=== PATIENT | male | born 1975 | race Caucasian/White ===

== ENCOUNTER 2020-01-27 18:52 | Emergency (ER) | payer MEDICAID ==
[~2020-01-27] VITALS: Ht 167.6 cm; Wt 113.4 kg
[2020-01-27 19:03] VITALS: Ht 167.6 cm; Wt 113.4 kg
[2020-01-27 19:53] VITALS: BP 165/89
== END 2020-01-27 19:53 | disposition left against medical advice (07) ==
LOC: ED 18:52 → EDBD 18:52 → ED 19:53
DX: M79.89 Other specified soft tissue disorders (principal); Z13.9 Encounter for screening, unspecified

== ENCOUNTER 2020-02-06 13:41 | Inpatient (IN) | payer MEDICAID, SELFPAY ==
[~2020-02-06] VITALS: Ht 167.6 cm; Wt 113.4 kg
[2020-02-06 13:49] VITALS: Ht 167.6 cm; Wt 113.4 kg
[2020-02-06 14:43] LABS: BILIRUBIN TOTAL 7.8 mg/dL (0.20-1.00); CARBON DIOXIDE 20.7 mmol/L (21-32); POTASSIUM SERUM 3.7 mmol/L (3.5-5.1)
[2020-02-06 14:44] LABS: PLATELET COUNT 167 x10^3mcL (130-400)
[2020-02-06 14:45] LABS: RED CELL DISTRIBUTION WIDTH 18.1 % (11.5-14.5)
[2020-02-06 14:46] LABS: ALBUMIN 1.2 g/dL (3.4-5.0)
[2020-02-06 14:47] LABS: CALCIUM 5.7 mg/dL (8.5-10.1); CREATININE SERUM 5.8 mg/dL (0.7-1.3)
[2020-02-06 15:52] LABS: BAND NEUTROPHIL 0 % (0-10); BASOPHIL 0 % (0-2); MONOCYTE 1 % (0-7); SEGMENTED NEUTROPHILS 96 % (37-75); rbc morphology (normal/abnorm) ABNORMAL (NORMAL)
[2020-02-06] MEDS ORDERED: LASIX40 MG PO (15:54)
[2020-02-06] MEDS ORDERED: KRISTALOSE20 GM PO (15:55)
[2020-02-06] MEDS ORDERED: METHADONE HC10 MG/M3 PO (15:56)
[2020-02-06] MEDS ORDERED: ZOF4 PO (15:57)
[2020-02-06] MEDS ORDERED: ATIVAN0.5 M1 PO (15:58)
[2020-02-06] MEDS ORDERED: ROXD PO (15:58)
[2020-02-06] MEDS ORDERED: DUL10S RC (16:00)
[2020-02-06] MEDS ORDERED: LEVSIN0.125 M1 PO (16:00)
[2020-02-06 17:20] LABS: T3 TOTAL 0.26 ng/mL
[2020-02-06 17:37] LABS: FREE T4 0.61 ng/dL (0.76-1.46)
[2020-02-06 17:46] LABS: FREE THYROXINE INDEX 1.1 ug/dL (1.4-4.5); T4(THYROXINE) 3.6 ug/dL (4.7-13.3)
[2020-02-06 18:09] LABS: CHOLESTEROL/HDL RATIO 14.3
[2020-02-06 19:22] VITALS: BP 103/62
[2020-02-06 19:30] LABS: PHOSPHOROUS 10.8 mg/dL (2.5-4.9)
[2020-02-06 21:10] VITALS: BP 108/65
[2020-02-06 22:35] VITALS: BP 112/61
[2020-02-06 23:50] VITALS: BP 101/61
[2020-02-07] LABS: RED BLOOD CELLS 2.48 M/mm3 (4.52-5.90)
[2020-02-07 00:12] LABS: IRON 31 ug/dL (65-170); TOTAL IRON BINDING CAPACITY 211 ug/dL (250-450)
[2020-02-07 01:00] VITALS: BP 110/62
[2020-02-07 05:11] VITALS: BP 116/63
[2020-02-07 07:43] LABS: PLATELET COUNT 250 x10^3mcL (130-400)
[2020-02-07 08:05] LABS: RED CELL DISTRIBUTION WIDTH 14.6 % (11.5-14.5)
[2020-02-07 10:02] VITALS: BP 94/44
[2020-02-07 10:22] LABS: CALCIUM 7.4 mg/dL (8.5-10.1); MAGNESIUM 2.5 mg/dL (1.8-2.4); PHOSPHOROUS 6.5 mg/dL (2.5-4.9)
[2020-02-07 10:35] LABS: CREATININE SERUM 4.8 mg/dL (0.7-1.3)
[2020-02-07 13:30] VITALS: BP 133/72
[2020-02-07 14:15] LABS: MONOCYTE 6 % (0-7); SEGMENTED NEUTROPHILS 88 % (37-75); rbc morphology (normal/abnorm) ABNORMAL (NORMAL)
[2020-02-07 15:17] LABS: PATH REVIEW for HEMA NO
[2020-02-07 17:15] VITALS: BP 121/63
[2020-02-07 20:21] VITALS: BP 120/63
[2020-02-08 06:12] VITALS: BP 128/71
[2020-02-08 09:20] VITALS: BP 112/58
[2020-02-08 12:40] VITALS: BP 122/65
[2020-02-08 16:55] VITALS: BP 116/69
[2020-02-08 22:00] VITALS: BP 113/69
[2020-02-09 05:48] VITALS: BP 92/68
[2020-02-09 06:58] LABS: BASOPHIL % 0.5 % (0-2); PLATELET COUNT 185 x10^3mcL (130-400)
[2020-02-09 08:01] LABS: CARBON DIOXIDE 13.7 mmol/L (21-32); POTASSIUM SERUM 4.4 mmol/L (3.5-5.1)
[2020-02-09 08:11] LABS: CREATININE SERUM 9.1 mg/dL (0.7-1.3)
[2020-02-09 08:46] LABS: CALCIUM 5.1 mg/dL (8.5-10.1)
[2020-02-09 09:06] VITALS: BP 119/73
[2020-02-09 09:42] LABS: RED CELL DISTRIBUTION WIDTH 18.3 % (11.5-14.5)
[2020-02-09 12:52] LABS: rbc morphology (normal/abnorm) ABNORMAL (NORMAL)
[2020-02-09 13:23] VITALS: BP 107/48
[2020-02-09 21:00] VITALS: BP 116/63
[2020-02-10 05:25] VITALS: BP 99/54
[2020-02-10 07:12] LABS: PLATELET COUNT 243 x10^3mcL (130-400)
[2020-02-10 07:17] LABS: CARBON DIOXIDE 12.6 mmol/L (21-32); POTASSIUM SERUM 4.6 mmol/L (3.5-5.1)
[2020-02-10 07:19] LABS: CREATININE SERUM 9.8 mg/dL (0.7-1.3)
[2020-02-10 07:57] LABS: RED CELL DISTRIBUTION WIDTH 18.2 % (11.5-14.5)
[2020-02-10 12:44] LABS: BAND NEUTROPHIL 1 % (0-10); MONOCYTE 6 % (0-7); SEGMENTED NEUTROPHILS 81 % (37-75); rbc morphology (normal/abnorm) ABNORMAL (NORMAL); tear drop cell (dacryocyte) 1+
[2020-02-10 12:45] LABS: PLATELET MORPHOLOGY PLATELETS NORMAL
[2020-02-10 13:20] VITALS: BP 108/66
[2020-02-10 17:32] VITALS: BP 108/66
[2020-02-10 21:24] VITALS: BP 111/68
[2020-02-11 06:31] VITALS: BP 94/44
[2020-02-11 06:41] VITALS: BP 105/62
[2020-02-11 09:00] LABS: BASOPHIL % 0.6 % (0-2); PLATELET COUNT 214 x10^3mcL (130-400)
[2020-02-11 09:07] VITALS: BP 94/54
[2020-02-11 09:07] LABS: RED CELL DISTRIBUTION WIDTH 18.2 % (11.5-14.5)
[2020-02-11 09:17] LABS: CARBON DIOXIDE 13.7 mmol/L (21-32); MAGNESIUM 2.2 mg/dL (1.8-2.4); POTASSIUM SERUM 4.9 mmol/L (3.5-5.1)
[2020-02-11 09:53] LABS: CREATININE SERUM 10.5 mg/dL (0.7-1.3)
[2020-02-11 10:10] LABS: CALCIUM 4.8 mg/dL (8.5-10.1)
[2020-02-11 17:12] VITALS: BP 104/61
[2020-02-11 18:09] VITALS: BP 104/61
== END 2020-02-11 20:10 | disposition hospice, home (50) | DRG 720 ==
LOC: ED 13:41 → EDBD 13:41 → ED 13:41 → DU 16:35
PROVIDERS: Emergency Medicine; Internal Medicine; ADMIT Family Medicine; ATTEND Family Medicine
PROC: 30233N1 Transfusion of Nonautologous Red Blood Cells into Peripheral Vein, Percutaneous Approach (ICD-10-PCS; principal; 2020-02-06)
DX: A41.01 Sepsis due to Methicillin susceptible Staphylococcus aureus (principal); I26.90 Septic pulmonary embolism without acute cor pulmonale; E43 Unspecified severe protein-calorie malnutrition; I33.0 Acute and subacute infective endocarditis; I50.43 Acute on chronic combined systolic (congestive) and diastolic (congestive) heart failure; I76 Septic arterial embolism; N17.9 Acute kidney failure, unspecified; J18.9 Pneumonia, unspecified organism; E87.8 Other disorders of electrolyte and fluid balance, not elsewhere classified; N18.6 End stage renal disease; E86.0 Dehydration; E87.1 Hypo-osmolality and hyponatremia; Z20.828 Contact with and (suspected) exposure to other viral communicable diseases; K74.60 Unspecified cirrhosis of liver; K72.90 Hepatic failure, unspecified without coma; D64.9 Anemia, unspecified; I73.9 Peripheral vascular disease, unspecified; E66.01 Morbid (severe) obesity due to excess calories; Z71.3 Dietary counseling and surveillance; B19.20 Unspecified viral hepatitis C without hepatic coma; Z87.891 Personal history of nicotine dependence; L03.116 Cellulitis of left lower limb; L03.115 Cellulitis of right lower limb; Z91.19 Patient's noncompliance with other medical treatment and regimen; N25.81 Secondary hyperparathyroidism of renal origin; Z68.42 Body mass index [BMI] 45.0-49.9, adult
CPT/HCPCS: 83880; 84439; 85378; 97116-GP; G0378; J0885-EC; J1644; J1940; J2405; J2543; J3370; J3490; J7030; J7040; J7050; P9016; Q0092; Q0163; U0003-CS